=== PATIENT | male | born 1955 | race Caucasian/White ===

== ENCOUNTER 2024-02-14 12:54 | Emergency (ER) | payer MEDICARE, SELFPAY ==
--- NOTE | 2024-02-14 13:01 | ED_ITS ---
HPI - General Adult General Chief complaint: General Medical Stated complaint: Med refill Time Seen by Provider: 02/14/24 13:18 Source: patient and family Mode of arrival: ambulatory Limitations: no limitations History of Present Illness ED Provider: Bacilio Wilson PA-C HPI narrative: 68 yo male with history of DM2 on insulin who presents to the ER for insulin refill. He is visiting here from [place] for the holidays and his luggage was lost with his insulin in it. He has been out of it for 2 days. He has had intermittent dizziness and thirst but no nausea, vomiting, abdominal pain, chest pain, sob or fevers. he has not checked his sugar. he does not know exactly what type of insulin he uses, he only knows it is in the morning and at night. MD complaint: med refill Pain Consistency: intermittent Relieving factors: none Exacerbating factors: none Associated symptoms: denies other symptoms Treatments prior to arrival: none Related Data Previous Rx's ?Medication ?Instructions ?Recorded insulin human U-100 NPH-regulr 15 unit (0.15 mL) subcut .nightly 02/14/24 70-30 mix 100 unit/mL subcutaneous #10 mL susp (Humulin 70/30 U-100 Insulin) insulin human U-100 NPH-regulr 25 unit (0.25 mL) subcut QAM #10 mL 02/14/24 70-30 mix 100 unit/mL subcutaneous susp (Humulin 70/30 U-100 Insulin) Allergies Allergy/AdvReac Type Severity Reaction Status Date / Time No Known Allergies Allergy Verified 02/14/24 13:05 [No Known Allergies*] Review of Systems Review of Systems: Yes all other systems are reviewed and are negative [facility] Social History Social History Do you have a plan to hurt others: No Plan Physical Exam ED Vital Signs: Vital Signs - 24 hr 02/14/24 13:02 Temperature 99.3 F Pulse Rate 59 Respiratory Rate 20 Blood Pressure 112/73 Pulse Oximetry 96 Oxygen Delivery Method Room Air BMI result Body Mass Index 22.7 Appearance: Alert. Oriented X3. No acute distress. HEENT: normal external inspection Neck: Normal inspection. CVS: Normal heart rate and rhythm. Respiratory: No respiratory distress. speaking in complete sentences. Skin: Normal skin color. Normal skin turgor. No rashes. Extremities: No lower extremity edema. No joint swelling. Neuro/psych: Oriented X 3. grossly normal, nonfocal. Normal speech and cognition. Medical Decision Making Medical Decision Making [facility] Narrative: 68 yo male presenting for insulin med refill. called and spoke with pharmacist at his pharmacy in [place]. he is on humalin 70/30 - 25 units qam and 15 units qpm. glucose 282. doubt euglycemic dka. he has no symptoms. currently feels well. will provide refills. he has needles stable for d/c home Differential Diagnosis Differential Diagnoses: The differential diagnosis associated with the presentation includes hyperglycemia due to insulin noncompliance, euiglycemic DKA less likely Lab Data [facility] Lab Attestation statement: I reviewed the patient's lab results. hyperglycemia Labs: Lab Results 02/14/24 Range/Units 13:08 POC Glucose 282 H (60-115) mg/dL Independent Historian Clinical information obtained from an independent historian. History obtained from or confirmed by: Friend Tests considered The following testing was considered but not selected: labs, ph, considered, low suspicion for dka Prescription Management I considered prescription management with: Other (insulin) Chronic Conditions Patient?s care impacted by: Diabetes Social Determinants Patient?s care significantly limited by Social Determinants of Health including: Other Social Determinant of Health Critical Care Time Critical Care Time Critical Care Time: No Discharge Plan Discharge Clinical Impression: Hyperglycemia Patient Disposition: Home, Self-Care Instructions: Diabetic Hyperglycemia (ED) Additional Instructions: take 25 units in the morning and 15 units at night follow up with your doctor If you develop new or worsening symptoms call 911 or come back to the ER for further evaluation. Prescriptions: New Humulin 70/30 U-100 Insulin 100 unit/mL (70-30) suspension 25 unit subcut QAM Qty: 10 0RF Humulin 70/30 U-100 Insulin 100 unit/mL (70-30) suspension 15 unit subcut .nightly Qty: 10 0RF Print Language: [place]
[2024-02-14 13:02] VITALS: BP 112/73; PULSE 59; RESP 20; TEMP 37.4; O2SAT 96; BMI 22.7
[2024-02-14 13:12] LABS: Glucose, Whole Blood 282 mg/dL (60-115)
[2024-02-14 13:28] VITALS: BP 112/73; PULSE 59; RESP 20; TEMP 37.4; O2SAT 96
== END 2024-02-14 13:38 | disposition home or self-care (01) ==
PROVIDERS: Emergency Provider Emergency Medicine Emergency Medical Services
DX: E11.65 Type 2 diabetes mellitus with hyperglycemia (principal); Z76.0 Encounter for issue of repeat prescription
CPT/HCPCS: 82947; 99282; 99283